=== PATIENT | male | born 1965 ===

== ENCOUNTER 2016-11-16 16:34 | Emergency (ER) | payer OTHER ==
[2016-11-16 16:39] VITALS: PULSE 60; RESP 16; O2SAT 98
[2016-11-16] MEDS ORDERED: FLUORESCEIN SODIUM 1 MG STRIP OP ONE (16:51)
[2016-11-16] MEDS ORDERED: PROPARACAINE 0.5% 15 ML OPHT DROP ONE (16:52)
[2016-11-16] MEDS ORDERED: OFLOXACIN 0.3% SOLN PREPACK OPHT.BTL TAKEHOME ONE (17:00)
--- NOTE | 2016-11-16 17:02 | EDPHY ---
H & P Stated Complaint: IRRITATION OF LEFT EYE, "PULLED CORNEA OFF" Time Seen by Provider: 11/16/16 16:49 HPI/ROS: CHIEF COMPLAINT: Left eye pain HISTORY OF PRESENT ILLNESS: The patient is a 51-year-old man who comes to the emergency department complaining of left eye pain. He states that about a month ago he woke up and had dry eyes in [place] and had a corneal abrasion/tear when he opened his eyes. It was treated appropriately and healed but then reoccurred about a week ago and again 3 days ago. He is not currently on antibiotics. He has not had any discharge. He does not have any erythema. He does not have any foreign body sensation history. His vision is intact. He was glasses but not contacts. REVIEW OF SYSTEMS: Constitutional: denies: chills, fever, recent illness, recent injury EENTM: See HPI Respiratory: denies: cough, shortness of breath Cardiac: denies: chest pain, irregular heart rate, lightheadedness, palpitations Gastrointestinal/Abdominal: denies: abdominal pain, diarrhea, nausea, vomiting, blood streaked stools Genitourinary: denies: dysuria, frequency, hematuria, pain Musculoskeletal: denies: joint pain, muscle pain Skin: denies: lesions, rash, jaundice, bruising Neurological: denies: headache, numbness, paresthesia, tingling, dizziness, weakness Hematologic/Lymphatic: denies: blood clots, easy bleeding, easy bruising Immunologic/allergic: denies: HIV/AIDS, transplant EXAM: GENERAL: Well-appearing, well-nourished and in no acute distress. HEAD: Atraumatic, normocephalic. EYES: Left-sided corneal abrasion/avulsion collar in mild. Pupils equal round and reactive to light, extraocular movements intact, sclera anicteric, conjunctiva are normal. ENT: TMs normal, nares patent, oropharynx clear without exudates. Moist mucous membranes. NECK: Normal range of motion, supple without lymphadenopathy or JVD. LUNGS: Breath sounds clear to auscultation bilaterally and equal. No wheezes rales or rhonchi. HEART: Regular rate and rhythm without murmurs, rubs or gallops. ABDOMEN: Soft, nontender, normoactive bowel sounds. No guarding, no rebound. No masses appreciated. BACK: No CVA tenderness, no spinal tenderness, step-offs or deformities EXTREMITIES: Normal range of motion, no pitting or edema. No clubbing or cyanosis. NEUROLOGICAL: Cranial nerves II through XII grossly intact. Normal speech, normal gait. 5/5 strength, normal movement in all extremities, normal sensation PSYCH: Normal mood, normal affect. SKIN: Warm, dry, normal turgor, no visible rashes or lesions. Source: Patient Exam Limitations: No limitations - Personal History Current Tetanus Diphtheria and Acellular Pertussis (TDAP): No - Medical/Surgical History Hx Asthma: No Hx Chronic Respiratory Disease: No Hx Diabetes: No Hx Cardiac Disease: No Hx Renal Disease: No Hx Cirrhosis: No Hx Alcoholism: No Hx HIV/AIDS: No Hx Splenectomy or Spleen Trauma: No Other PMH: SPINAL ISSUES - Family History Significant Family History: No pertinent family hx - Social History Smoking Status: Never smoked Alcohol Use: None Drug Use: None Constitutional: Initial Vital Signs Temperature (C) 36.6 C 11/16/16 16:36 Heart Rate 60 11/16/16 16:36 Respiratory Rate 16 11/16/16 16:36 Blood Pressure 150/90 H 11/16/16 16:36 O2 Sat (%) 98 11/16/16 16:36 O2 Delivery Mode Room Air Allergies/Adverse Reactions: egg Allergy (Verified 11/16/16 16:39) Home Medications: Medication Instructions Recorded NK [No Known Home Meds] 11/16/16 Medical Decision Making ED Course/Re-evaluation: We discussed the treatment plan. The patient will follow up with Ophthalmology. I do not see any evidence of foreign body or glaucoma. Retinal was visualized and appears normal. Differential Diagnosis: Partial list of the Differential diagnosis considered include but were not limited to; corneal evaluation Damaris foreign body and although unlikely based on the history and physical exam, I also considered glaucoma, conjunctivitis, retinal hemorrhage, ischemia. I discussed these differential diagnoses and the plan with the patient as well as the usual and expected course. The patient understands that the diagnosis is provisional and that in medicine we are not always correct and that further workup is often warranted. Usual and customary warnings were given. All of the patient's questions were answered. The patient was instructed to return to the emergency department should the symptoms at all worsen or return, otherwise to followup with the physician as we discussed. - Data Points Medications Given: Discontinued Medications Ofloxacin (Ocuflox 0.3% Opht Drops Prepack) 1 btl TAKEKEVIN EDNOW ONE Stop: 11/16/16 17:01 Last Admin: 11/16/16 17:08 Dose: 1 btl Departure - Departure Disposition: Home, Routine, Self-Care Clinical Impression: Corneal abrasion Qualifiers: Encounter type: initial encounter Laterality: left Qualifier Code: (S05.02XA) Injury of conjunctiva and corneal abrasion without foreign body, left eye, initial encounter Condition: Fair Instructions: Corneal Abrasion (ED), Ofloxacin (Into the eye) Additional Instructions: 2 drops in left eye every 4 hours for 48 hours. Referrals: Pk Callaway MD [Medical Doctor] - As per Instructions
[2016-11-16 17:14] VITALS: BP 141/86; TEMP 97.5
== END 2016-11-16 17:16 | disposition home or self-care (01) ==
LOC: MERGE 16:34
DX: S05.02XA Injury of conjunctiva and corneal abrasion without foreign body, left eye, initial encounter (principal); X58.XXXA Exposure to other specified factors, initial encounter